=== PATIENT | male | born 1970 | race African-American/Black ===

== ENCOUNTER 2022-01-14 10:59 | Observation (INO) ==
[2022-01-14] MEDS ORDERED: ASPIRIN 325 MG TABLET PO STA (11:47)
[2022-01-14] MEDS ORDERED: LABETALOL 20 MG/4 ML SYRINGE IV STA (11:47)
[2022-01-14 12:36] LABS: Basophils # 0.1 10*3/uL (0.0-0.2); Basophils % 0.8 % (0.0-0.8); Eosinophils # 0.2 10*3/uL (0.0-0.87); Hematocrit 47.8 VOL% (42.0-52.0); Hemoglobin 15.2 GM/DL (14.0-18.0); Immature Granulocytes % 0.1 %; Immature Granulocytes Absolute 0.01 #; Lymphocytes # 2.2 10*3/uL (1.4-4.0); Mean Corpuscular HGB Conc 31.8 GM/DL (32-36); Monocytes # 0.7 10*3/uL (0.11-0.8); Neutrophils % 60.1 % (38.7-73.9); Platelet Count 240 T/CUMM (130-400); Red Blood Count 5.43 MC/CUMM (3.8-5.5); Red Cell Distribution Width 13.2 % (9.3-17.3); White Blood Count 7.7 T/CUMM (4-12)
[2022-01-14 13:00] LABS: Alanine Aminotransferase 29 U/L (16-61); Albumin 3.3 G/DL (3.4-5.0); Alkaline Phosphatase 78 U/L (45-117); Aspartate Amino Transferase 14 U/L (0-37); Blood Urea Nitrogen 11 MG/DL (7-18); Calcium 8.9 MG/DL (8.5-10.1); Carbon Dioxide 28 MMOL/L (21-32); Chloride 106 MMOL/L (98-107); Glucose 230 MG/DL (74-106); Osmolality,Calculated 278.8 MOS/KG (273-304); Potassium 3.9 MMOL/L (3.5-5.1); Sodium 137 MMOL/L (136-145); Total Protein 6.8 G/DL (6.4-8.2)
[2022-01-14] MEDS ORDERED: ENOXAPARIN 30 MG/0.3 ML SYRINGE SUBCUT STA (13:26)
[2022-01-14] MEDS ORDERED: ACETAMINOPHEN 325 MG TABLET PO PRN (13:44)
[2022-01-14] MEDS ORDERED: GLUCAGON 1 MG VIAL IM PRN (13:44)
[2022-01-14] MEDS ORDERED: ONDANSETRON 4 MG/2 ML VIAL IV PRN (13:44)
[2022-01-14] MEDS ORDERED: DEXTROSE 10% 250 ML BAG IV PRN (13:53)
[2022-01-14] MEDS ORDERED: amLODIPine 5 MG TABLET PO STA (14:26)
[2022-01-14 14:50] LABS: Arterial Base Excess iSTAT 2 MMOL/L (-2.5-2.5); Arterial Bicarbonate iSTAT 29.1 MMOL/L (20-26); Arterial O2 Saturation iSTAT 98 % (95-100); Arterial PCO2 iSTAT 52 MM HG (35-48); Arterial PO2 iSTAT 113 MM HG (80-95); Arterial Total CO2 iSTAT 31 MMO/L (23-27); Arterial pH iSTAT 7.355 (7.35-7.45)
[2022-01-14] MEDS ORDERED: ENOXAPARIN 100 MG/ML SYRINGE SUBCUT ONE (14:50)
[2022-01-14] MEDS: ENOXAPARIN 40 MG/0.4 ML SYRINGE SUBCUT SCH (15:42)
[2022-01-14 15:46] LABS: Risk Ratio 3.94; VLDL Cholesterol 26.4 MG/DL
[2022-01-14] MEDS ORDERED: PNEUMOCOCCAL VACCINE (23 VALENT) 0.5 ML VIAL IM ONE (15:53)
[2022-01-14] MEDS: hydrALAZINE 20 MG/1 ML VIAL IV PRN ×2 (15:57→22:03)
[2022-01-14] MEDS: INSULIN LISPRO 100 UNIT/ML SUBCUT SCH ×2 (15:57→22:02)
[2022-01-14 16:47] LABS: Urine Appearance Clear (Clear); Urine Color Yellow (Yellow)
[2022-01-14 16:48] LABS: Bilirubin,Urine Negative (Negative); Blood, Urine Negative (Negative); Glucose,Urine (UA) 500 mg/dL (Negative); Ketones,Urine Negative (Negative); Nitrite,Urine Negative (Negative); Protein,Urine Negative (Negative); Urine Urobilinogen 0.2 eU/dL (<2.0); Urine pH 5.5 (4.5-8.0)
[2022-01-14 16:56] LABS: Mucus,Urine Occasional /LPF (Occasional); Squamous Epithelial Cell,Urine Occasional /HPF (0-10)
[2022-01-14 17:08] LABS: Barbiturates Screen,Urine Negative (Negative); Benzodiazepines Screen,Urine Negative (Negative); Cannabinoid Screen,Urine Positive (Negative); Opiate Screen,Urine Negative (Negative); Phencyclidine Screen,Urine Negative (Negative)
[2022-01-15 04:36] LABS: Basophils # 0.1 10*3/uL (0.0-0.2); Basophils % 0.6 % (0.0-0.8); Eosinophils # 0.1 10*3/uL (0.0-0.87); Eosinophils % 1.5 % (0.00-10.9); Hematocrit 53.2 VOL% (42.0-52.0); Hemoglobin 16.9 GM/DL (14.0-18.0); Immature Granulocytes % 0.2 %; Immature Granulocytes Absolute 0.02 #; Lymphocytes # 1.9 10*3/uL (1.4-4.0); Lymphocytes % 20.5 % (21.2-54.2); Mean Corpuscular HGB Conc 31.8 GM/DL (32-36); Mean Corpuscular Volume 88.2 FL (87-102); Mean Platelet Volume 9.9 FL (9.6-12.0); Monocytes # 0.6 10*3/uL (0.11-0.8); Monocytes % 6.6 % (1.7-12.7); Neutrophils % 70.6 % (38.7-73.9); Platelet Count 276 T/CUMM (130-400); Red Blood Count 6.03 MC/CUMM (3.8-5.5); Red Cell Distribution Width 13.2 % (9.3-17.3); White Blood Count 9.3 T/CUMM (4-12)
[2022-01-15 04:56] LABS: Potassium 3.6 MMOL/L (3.5-5.1)
[2022-01-15] MEDS: PANTOPRAZOLE 40 MG TABLET PO SCH (05:27)
[2022-01-15] MEDS: ASPIRIN 325 MG TABLET PO SCH (08:40)
[2022-01-15] MEDS: amLODIPine 10 MG TABLET PO SCH (08:40)
[2022-01-15] MEDS: INSULIN LISPRO 100 UNIT/ML SUBCUT SCH ×4 (08:41→20:57)
[2022-01-15] MEDS: LOSARTAN 50 MG TABLET PO SCH ×2 (13:15→20:56)
[2022-01-15] MEDS: ENOXAPARIN 40 MG/0.4 ML SYRINGE SUBCUT SCH (16:24)
[2022-01-15] MEDS: NICOTINE 21 MG/24 HR PATCH TRANSDERM SCH (17:26)
[2022-01-15] MEDS: GABAPENTIN 300 MG CAPSULE PO SCH (20:57)
[2022-01-15] MEDS ORDERED: INSULIN GLARGINE 100 UNIT/ML SUBCUT SCH (21:00)
[2022-01-16] MEDS: hydrALAZINE 20 MG/1 ML VIAL IV PRN ×2 (00:25→08:50)
[2022-01-16] MEDS: PANTOPRAZOLE 40 MG TABLET PO SCH (06:39)
[2022-01-16 08:30] VITALS: BP 172/105
[2022-01-16] MEDS: amLODIPine 10 MG TABLET PO SCH (08:49)
[2022-01-16] MEDS: ASPIRIN 325 MG TABLET PO SCH (08:49)
[2022-01-16] MEDS: GABAPENTIN 300 MG CAPSULE PO SCH (08:50)
[2022-01-16] MEDS: INSULIN LISPRO 100 UNIT/ML SUBCUT SCH (08:50)
[2022-01-16] MEDS: LOSARTAN 50 MG TABLET PO SCH (08:50)
[2022-01-16] MEDS: NICOTINE 21 MG/24 HR PATCH TRANSDERM SCH (08:51)
== END 2022-01-16 11:30 | disposition home or self-care (01) ==
LOC: EDUNIT# → EDBD → N.ED 10:59 → N.EDINP 10:59 → SUATTDRO 13:44 → N.TELEN 15:38
PROVIDERS: ADMIT Internal Medicine; ATTEND Emergency Medicine